=== PATIENT | female | born 1960 | race Caucasian/White ===

== ENCOUNTER 2025-02-18 10:41 | Outpatient (CLI) | payer MEDICAID ==
--- NOTE | 2025-02-19 08:49 | RADIOLOGY REPORT ---
PROCEDURE: MR MRI C SPINE INDICATION: CERVICALGIA 64-year-old female with neck pain and back pain. EXAM DATE: 02/18/2025 11:02 AM COMPARISON: None TECHNIQUE: MRI cervical spine without intravenous contrast. FINDINGS: No fracture or listhesis of the cervical spine. No cerebellar tonsillar ectopia. No abnormal signal in the cervical spinal cord. C2-C3: No significant discopathy, spinal canal stenosis, or neural foraminal stenosis bilaterally. There is left facet hypertrophy. C3-C4: No significant discopathy, spinal canal stenosis, or neural foraminal stenosis bilaterally. There is bilateral facet hypertrophy. C4-C5: There is a circumferential broad disc bulge. There is left facet hypertrophy. No significant spinal canal stenosis. There is mild right and no significant left neural foraminal stenosis. C5-C6: There is disc desiccation with loss of disc height. There is a circumferential broad disc bulge with endplate hypertrophy. The AP dimension of the spinal canal measures 9.5 mm. There is moderate right and mild left neural foraminal stenosis. C6-C7: There is disc desiccation with loss of disc height. There is a circumferential broad disc bulge with endplate hypertrophy. There is mild bilateral facet hypertrophy. No significant spinal canal stenosis or neural foraminal stenosis bilaterally. Miscellaneous: The thyroid is multinodular. IMPRESSION: 1. No fracture of the cervical spine. 2. Cervical degenerative disc disease and facet arthropathy with significant neural foraminal stenosis in the right at C5-C6. These findings May correspond to right upper extremity radicular symptoms in the C6 nerve root distribution. 3. No significant spinal canal stenosis at any level in the cervical spine. 4. Multinodular thyroid. Recommend follow-up thyroid ultrasound for better characterization.
== END 2025-02-18 23:59 | disposition home or self-care (01) ==
LOC: MRI 10:41
PROVIDERS: ATTEND Nurse Practitioner Adult Health
DX: M47.812 Spondylosis without myelopathy or radiculopathy, cervical region (principal); M50.322 Other cervical disc degeneration at C5-C6 level; M48.02 Spinal stenosis, cervical region; R20.2 Paresthesia of skin
CPT/HCPCS: 72141